=== PATIENT | male | born 2000 | race Caucasian/White ===

== ENCOUNTER 2023-09-13 16:47 | Emergency (ER) | payer BC, SELFPAY ==
[2023-09-13 16:52] VITALS: BP 126/85; PULSE 76; RESP 16; TEMP 37.2; O2SAT 99; BMI 18.1
--- NOTE | 2023-09-13 16:57 | XR_ITS ---
Final Report Patient: [facility]AR[facility] Facility:?[facility] Patient ID:?[id number] Site Patient ID:?[id number]. Site :?01/06/2021 Study:?XRay Extremity Right SHOULER-09/13/2023 5:09:30 PM Ordering Physician:CASSIA Final Report: INDICATION: Snowboarding injury. TECHNIQUE: Three views of the right shoulder. FINDINGS: No acute right shoulder fracture or dislocation. Normal exam. Dictated by Walter Delacruz MD @ 09/13/2023 5:47:31 PM (Electronic Signature)
--- NOTE | 2023-09-13 16:58 | ED.GENADULT ---
HPI - General Adult General Date Seen: 09/13/23 Chief complaint: Shoulder Injury/Pain Stated complaint: Snowboarding/fell weird pop and pain in R shoulder Time Seen by Provider: 09/13/23 16:50 Source: patient Mode of arrival: ambulatory Limitations: no limitations History of Present Illness HPI narrative: Patient is a 23-year-old here for evaluation of his right shoulder. He had a fall snowboarding today and notes pain primarily over the AC joint. No obvious deformity. Denies any head or neck injury. No other complaints. Related Data Home Medications Medication Instructions Recorded Confirmed No Known Home Medications 09/13/23 09/13/23 Allergies Allergy/AdvReac Type Severity Reaction Status Date / Time No Known Drug Allergies Allergy Verified 09/13/23 16:52 Review of Systems Status of ROS: Reports: 6 or more systems reviewed and unremarkable except as noted in History and below [facility] Social History Smoking Status: Current every day smoker Do you use any of these nicotine containing products: Vaping Products How often do you have a drink containing alcohol: 2-4 times a month AUDIT-C Alcohol total score: 2 Non-prescribed substance use: marijuana (any form) Exam Narrative: Exam Narrative: Vital signs reviewed In general, alert, well-appearing young man. Head: Normocephalic, atraumatic. Neck: Nontender to palpation. Heart: Regular rate and rhythm. Lungs: Clear, breath sounds equal. Extremities: Examination of the right shoulder shows no obvious deformity bruising or swelling. He has tenderness isolated over the AC joint. Range of motion is full although he has pain with extremes of range of motion. Clavicle is nontender. Skin: Warm dry well perfused. Neurologic: He is alert, conversant, moves all extremities equally. Const: Vital Signs, click to edit/add: Vital Signs - 24 hr 09/13/23 16:52 Temperature 99.0 F Pulse Rate [Pulse Oximeter] 76 Respiratory Rate 16 Blood Pressure [Le ft Upper Arm] 126/85 Pulse Oximetry 99 Oxygen Delivery Me thod Room Air Course Course ED Course: X-rays of the right shoulder by my review are negative for fracture or dislocation. Clavicle appears normal. Presentation is consistent with AC separation. Conservative therapy, ice, ibuprofen, sling if needed. Orthopedic follow-up if needed for persistent symptoms despite conservative therapy. Final radiology read of x-rays is normal. Vital Signs Vital signs: Initial Vital Signs Temperature 99.0 F 09/13/23 16:52 Temperature Source Temporal Artery Scan 09/13/23 16:52 Pulse Rate 76 09/13/23 16:52 Respiratory Rate 16 09/13/23 16:52 Blood Pressure 126/85 09/13/23 16:52 Blood Pressure Mean 98 09/13/23 16:52 Blood Pressure Position Sitting 09/13/23 16:52 Pulse Oximetry 99 09/13/23 16:52 Oxygen Delivery Method Room Air 09/13/23 16:52 Vital Signs Temperature 99.0 F 09/13/23 16:52 Pulse Rate 76 09/13/23 16:52 Respiratory Rate 16 09/13/23 16:52 Blood Pressure 126/85 09/13/23 16:52 Pulse Oximetry 99 09/13/23 16:52 Oxygen Delivery Method Room Air 09/13/23 16:52 Temperature 99.0 F 09/13/23 16:52 Pulse Rate 76 09/13/23 16:52 Respiratory Rate 16 09/13/23 16:52 Blood Pressure 126/85 09/13/23 16:52 Pulse Oximetry 99 09/13/23 16:52 Oxygen Delivery Method Room Air 09/13/23 16:52 Discharge Plan Discharge Clinical Impression: Sprain of right acromioclavicular joint, initial encounter Patient Disposition: Home, Self-Care Condition: Stable Instructions: Acromioclavicular Separation (ED) Additional Instructions: Ice 15-20 minutes a few times a day for the next few days. Ibuprofen 400 mg 3 times daily as needed. Anticipate gradual improvement although it may take several weeks for symptoms to entirely improved. Orthopedic follow-up if needed for persistent symptoms, . Prescriptions: No Action No Known Home Medications Stand Alone Forms: [employer] Info Instructions
== END 2023-09-13 18:03 | disposition home or self-care (01) ==
LOC: ED 18:02
PROVIDERS: Emergency Provider Emergency Medicine
DX: S43.51XA Sprain of right acromioclavicular joint, initial encounter (principal); X58.XXXA Exposure to other specified factors, initial encounter; Y93.23 Activity, snow (alpine) (downhill) skiing, snowboarding, sledding, tobogganing and snow tubing
CPT/HCPCS: 73030; 99283